=== PATIENT | female | born 1980 | race Caucasian/White ===

== ENCOUNTER 2018-12-12 08:41 | Emergency (ER) | payer MEDICAID ==
[~2018-12-12] VITALS: Ht 167.6 cm; Wt 59.3 kg
[2018-12-12 08:53] VITALS: BP 118/71; PULSE 109; RESP 20; Ht 167.6 cm; Wt 59.3 kg
[2018-12-12] MEDS ORDERED: ACETAMINOPHEN 325 MG TAB PO ONE (10:00)
[2018-12-12] MEDS ORDERED: FLUT16SP17 NASAL (11:05)
[2018-12-12] MEDS ORDERED: ACET325T45 PO (11:05)
[2018-12-12] MEDS ORDERED: CETI5TAB20 PO (11:05)
--- NOTE | 2018-12-12 11:32 | ERD ---
ER Documentation Chief Complaint Chief Complaint Complains of a cough x 3days HPI 38 year-old [female] coming in today with Chief Complaint: Cold symptoms History of Present Illness: female coming in today with complaint of cold symptoms for 3 days. Associated symptoms include cough, subjective fever with T-max, chills, body aches, rhinorrhea, nasal congestion. Denies abdominal pain and denies symptoms of genitourinary complaints and vaginal bleeding. Denies any other associated symptoms. At home for symptoms. Review of systems: All systems were reviewed and are negative except for what is indicated in the history of present illness. Past Medical History: [Negative for hypertension, diabetes or other medical problems] Social History: [Patient denies tobacco, alcohol, elicit drug use] Medications: [None] Allergies: [NKDA] Social Concerns: Denies ROS All systems reviewed and are negative except as per history of present illness. Medications Home Meds Active Scripts Cetirizine Hcl* (Cetirizine Hcl*) 5 Mg Tablet, 5 MG PO DAILY for runny nose/allergies/cough, #30 TAB Prov:ANGIE CHAVEZ NP 12/12/18 Acetaminophen* (Acetaminophen*) 325 Mg Tablet, 650 MG PO Q6 PRN for PAIN AND OR ELEVATED TEMP, #30 TAB Prov:ANGIE CHAVEZ NP 12/12/18 Fluticasone Propionate* (Fluticasone Propionate* Nasal) 50 Mcg/Burket - 16 Gm Burket.susp, 1 SPRAY NASAL DAILY for nasal congestion, #1 BOTTLE TO EACH NOSTRIL Prov:ANGIE CHAVEZ NP 12/12/18 Allergies Allergies: Coded Allergies: No Known Allergy (Unverified , 12/12/18) PMhx/Soc Medical and Surgical Hx: pt denies Medical Hx, pt denies Surgical Hx Hx Alcohol Use: No Hx Substance Use: No Hx Tobacco Use: No Smoking Status: Never smoker FmHx Family History: No diabetes, No coronary disease Physical Exam Vitals Vital Signs Date Temp Pulse Resp B/P (MAP) Pulse Ox O2 O2 Flow FiO2 Time Delivery Rate 12/12/18 98.5 109 20 118/71 97 08:53 (87) Physical Exam Const: No acute distress Head: Atraumatic Eyes: Normal Conjunctiva ENT: Normal External Ears, Nose and Mouth. Clear rhinorrhea. No erythema to tympanic membranes. Neck: Full range of motion. No meningismus. Resp: Clear to auscultation bilaterally Cardio: Regular rate and rhythm, no murmurs Abd: Soft, non tender, non distended. Normal bowel sounds. Skin: No petechiae or rashes Back: No midline or flank tenderness Ext: No cyanosis, or edema Neur: Awake and alert Psych: Normal Mood and Affect Results 24 hrs Current Medications Medications Dose Sig/Hannah Start Time Status Last (Trade) Ordered Route PRN Stop Time Admin Dose Reason Admin 650 mg ONCE ONCE 12/12/18 DC 12/12/18 Acetaminophen PO 10:00 12/12/18 10:03 (Tylenol 10:01 Tab) Procedures/MDM ED course includes a thorough examination and history. ED course includes patient; acetaminophen for pain/fever. ED course includes lab testing; influenza. Low suspicion for life-threatening medical emergency for patient for patient or unborn child. Otherwise healthy patient presenting with constellation of symptoms likely representing uncomplicated viral syndrome as characterized by history, physical exam findings [lab findings]. Negative influenza No respiratory distress, otherwise relatively well appearing and nontoxic. Patient educated on diagnoses, prescriptions [acetaminophen, cetirizine, fluticasone], follow-up care, return precautions. Strict return precautions given for worsening condition; questions answered discharge. Disposition for discharge with followup in 2-3 days with PCP/clinic. Departure Diagnosis: Primary Impression: Viral syndrome Condition: Stable Patient Instructions: Viral Syndrome (Adult) Referrals: [facility] Usted se green hecho un examen mdico de control que le indica que no est en judi condicin que requiera tratamiento urgente en el Departamento de Emergencia. Un estudio ms profundo y el tratamiento de coleman condicin pueden esperar sin ningn riesgo hasta que usted sea atendida/o en el consultorio de coleman mdico o judi clnica. Es responsabilidad suya arreglar judi jaskaran para el seguimiento del jamar. MANEJO DE CONDICIONES NO URGENTES EN EL FUTURO 1) Si usted tiene un mdico de atencin primaria: Usted debera llamar a coleman mdico de atencin primaria antes de venir al departamento de emergencia. Despus de las horas de consultorio, coleman doctor o coleman asociado/a est disponible por telfono. El mdico o enfermero de rafael en el servicio telefnico puede asesorarle por gisele medio para atender el problema, o jamar contrario se puede programar judi jaskaran. 2) Si usted no tiene un mdico de atencin primaria: Llame al mdico o clnica de referencia que aparece abajo ingrid las horas de consultorio para hacer judi jaskaran para que le vean. CLINICAS: [facility] [phone] [facility], [place] [phone] [address] [facility] [phone] [address] [facility]. [place] [id number] [phone] [facility]. [place] [address] [phone] [facility]. [phone] [facility]. [facility] () Usted se green hecho un examen mdico de control que le indica que no est en judi condicin que requiera tratamiento urgente en el Departamento de Emergencia. Un estudio ms profundo y el tratamiento de coleman condicin pueden esperar sin ningn riesgo hasta que usted sea atendida/o en el consultorio de coleman mdico o judi clnica. Es responsabilidad suya arreglar judi jaskaran para el seguimiento del jamar. MANEJO DE CONDICIONES NO URGENTES EN EL FUTURO 1) Si usted tiene un mdico de atencin primaria: Usted debera llamar a coleman mdico de atencin primaria antes de venir al departamento de emergencia. Despus de las horas de consultorio, coleman doctor o coleman asociado/a est disponible por telfono. El mdico o enfermero de rafael en el servicio telefnico puede asesorarle por gisele medio para atender el problema, o jamar contrario se puede programar judi jaskaran. 2) Si usted no tiene un mdico de atencin primaria: Llame al mdico o condado institucions de referencia que aparece abajo ingrid las horas de consultorio para hacer judi jaskaran para que le vean. SI USTED NO PUEDE PAGAR PARA MITCH UN MEDICO puede ir a: [facility] [address] [place] [address] [facility] [address] [place] [address] [facility] [address] [place] [address] [facility] [address] [place] [address] Additional Instructions: Call your primary care doctor TOMORROW for an appointment during the next 2-3 days.See the doctor sooner or return here if your condition worsens before your appointment time. Llame a coleman mdico de atencin primaria MAANA para judi jaskaran ingrid los prximos 2 o 3 partida. Consulte al mdico antes o vuelva aqu si coleman afeccin empeora antes de coleman jaskaran. ANGIE CHAVEZ NP Dec 12, 2018 11:32
== END 2018-12-12 11:00 | disposition home or self-care (01) ==
LOC: FTE 08:41
DX: B34.9 Viral infection, unspecified (principal)
CPT/HCPCS: 87400; Z7502; Z7610; 99283

== ENCOUNTER 2019-05-12 10:33 | Outpatient (CLI) | payer MEDICAID ==
[~2019-05-12] VITALS: Ht 152.4 cm; Wt 70.2 kg
[~2019-05-12 10:33] MED LIST: ACET325T45 PO; CALC600T24 PO; CETI5TAB20 PO; FERR134T PO; FLUT16SP17 NASAL; METF-849 PO; PNV11TAB PO
[2019-05-12 11:07] VITALS: BP 118/78; PULSE 90; Ht 152.4 cm; Wt 70.2 kg
--- NOTE | 2019-05-12 13:30 | TRIAGE ---
OB Triage Datetime Report Generated by CPN: 05/12/2019 13:30 Datetime: 05/12/2019 13:07 Stage of : OB Triage Datetime: 05/12/2019 13:00 Labor Evaluation Frequency: 5-7 Monitor Mode: External Duration (sec)2399: 50-60 Quality: Mild Pattern: Normal: <= 5 Contractions in 10 Minutes Resting Tone [place]: Relaxed Contraction Comments: STATES BARELY FEELS Heart Rate FHR Baseline Rate: 135 Monitor Mode: External US Variability: Moderate 6-25 bpm Accelerations: 10X10 Decelerations: None Category: Category I Pain Assessment Pain Scale: 2 Pain Presence: Intermittent Pain Type: Cramping Pain Location: Perineum Pain Goal: 3 Pain Relief Measures: Comfort Measures Datetime: 05/12/2019 12:01 Labor Evaluation Frequency: 8-10 Monitor Mode: External Duration (sec)2399: 40-60 Pattern: Normal: <= 5 Contractions in 10 Minutes Resting Tone [place]: Relaxed Heart Rate FHR Baseline Rate: 135 Monitor Mode: External US Variability: Moderate 6-25 bpm Accelerations: 10X10 Decelerations: None Category: Category I Pain Assessment Pain Scale: 0 Pain Presence: None/Denies Pain Type: N/A Pain Goal: 3 Pain Relief Measures: Comfort Measures Datetime: 05/12/2019 11:51 Stage of : OB Triage Datetime: 05/12/2019 11:04 Bedside Blood Glucose: 105 Datetime: 05/12/2019 11:00 Stage of : OB Triage Vaginal Exam Dilatation (cms): 1.5 Effacement (%): 50 Station: -2 Exam By: S ANSHUL Vaginal Bleeding: Scant Cervix, Consistency: Soft Cervix, Position: Posterior Presentation 'A': Cephalic Datetime: 05/12/2019 10:50 Stage of : OB Triage Assessment Type: Triage Maternal Assessment Level of Consciousness: Keenly Alert, Responsive DTR's/Clonus: DTRs 2+; No Clonus Headache: Denies Blurred Vision: No Respiratory Effort: Unlabored; Regular Rhythm; Equal Expansion Breath Sounds, Left: Clear and Equal Breath Sounds, Right: Clear and Equal Nausea/Vomiting: Denies RUQ Epigastric Pain: Denies Facial Edema: None Temperature Route: Axillary Fall Risk Assessment History of Falling: (0) No Secondary Diagnosis: (0) No Ambulatory Aid: (0) Bedrest/Nurse Assist IV Therapy: (0) No Gait: (0) Normal/Bedrest/Immobile Mental Status: (0) Oriented to Own Ability Fall Score: 0 Fall Risk Score Definition: No Risk: No action required Labor Evaluation Frequency: X1 Monitor Mode: External Duration (sec)2399: 50 Quality: Mild Pattern: Normal: <= 5 Contractions in 10 Minutes Resting Tone [place]: Relaxed Heart Rate FHR Baseline Rate: 135 Monitor Mode: External US Variability: Moderate 6-25 bpm Pain Assessment Pain Scale: 2 Pain Presence: Intermittent Pain Type: Cramping Pain Location: Perineum Pain Goal: 3 Pain Relief Measures: Comfort Measures Datetime: 05/12/2019 10:48 Time of Arrival: 05/12/2019 10:18 EGA: 36.2 Arrived By: Ambulatory Arrived From: Home Chief Complaint: C/O SPOTTING THIS AM, AIDM SEEN REGULARLY IN NST Movement: Present Contractions: Denies/Absent Rupture of Membranes: Denies Vaginal Bleeding: Scant Vaginal Discharge: Present Recent Sexual Intercouse: Denies Abdominal Trauma: Not Applicable Patient Complaints: Cramping Time Provider Notified: 05/12/2019 11:50 Provider Notified: ISABEL Initial Plan: MONITOR,BPP
--- NOTE | 2019-05-12 13:41 | PN ---
Triage Information Date/Time 05/12/1911/29/134 Reason for visit: Vag spotting / bleeding Weeks of Gestation 36w2d /Para Diabetes: gestational Diabetes management: diet controlled Hypertention: none Objective Vital Signs Date Temp Pulse Resp B/P (MAP) Pulse Ox O2 O2 Flow FiO2 Time Delivery Rate 05/12/19 98.1 90 118/78 11:07 (91) Heart Rate: 130's Heart Rate Comments CAT I Contractions: 6-10 Minutes Apart Exam VE 1-2/50/-2 pain level 2/10 uc's 8-10min apart Results/Medications Results 24 hrs Laboratory Tests Test 05/12/19 11:05 Bedside Glucose 105 Imaging Results BPP 05/18 DEJAN 13.7 Disposition: Discharge Assessment/Plan A IUP 36w2d A1DM P discharge home with routine labor instructions F/U with her OB IFTIKHAR BRAXTON MD May 12, 2019 13:41
== END 2019-05-12 13:21 | disposition home or self-care (01) ==
LOC: OBT 10:33 → L-D 10:33 → OBT 13:21
PROVIDERS: ATTEND Obstetrics & Gynecology
DX: O46.8X3 Other antepartum hemorrhage, third trimester (principal); Z3A.36 36 weeks gestation of pregnancy
CPT/HCPCS: 76818; 82962; Z7500; G0463

== ENCOUNTER 2019-05-23 03:30 | Inpatient (IN) | payer MEDICAID ==
[~2019-05-23] VITALS: Ht 152.4 cm; Wt 70.2 kg
[2019-05-23] VITALS (16 sets, daily range): BP systolic 125–167; BP diastolic 63–80; PULSE 70–94; RESP 14–19
[~2019-05-23 03:30] MED LIST changes: -ACET325T45 PO; -CETI5TAB20 PO; -FLUT16SP17 NASAL
--- NOTE | 2019-05-23 03:37 | NSTRPT ---
NST Information Datetime Report Generated by CPN: 05/23/2019 03:37 Datetime: 05/17/2019 08:32 NST Information EGA: 37.0 Time on Monitor: 05/17/2019 09:22 Time off Monitor: 05/17/2019 09:48 NST Duration (Min): 26 Reason for NST Other: [id number] Test and Monitor Explained: Monitor Explained; Test Explained; Verbalized Understanding Pulse: 81 Resp: 18 SBP: 118 DBP: 69 Test Evaluation NST Interventions: None Patient States Movement: Present Contraction Frequency: X3(mild) FHR Baseline : 130 Variability: Moderate 6-25bpm Accelerations: 15X15 Decelerations: None FHR Category: Category I NST Results: Reactive Comments: pt to u/s. DEJAN 15.6CM. cephalic. BPP 8/8. FBS:71 Patient states she started taking Metformin on 05/13/19. Electronically Signed By E-Signature: with User ID: [id number] Datetime: 05/10/2019 11:38 NST Information EGA: 36.0 Datetime: 05/10/2019 10:15 NST Duration (Min): 36
[2019-05-23] MEDS ORDERED: LACTATED RINGER'S 1,000 ML IV PRN (04:34)
[2019-05-23] MEDS ORDERED: LACTATED RINGER'S 1,000 ML IV SCH (04:34)
[2019-05-23] MEDS ORDERED: CARBOPROST 250 MCG INJ IM PRN ×3 (05:00→10:30)
[2019-05-23] MEDS ORDERED: BUTORPHANOL 2 MG INJ IV PRN ×2 (05:00)
[2019-05-23] MEDS ORDERED: MISOPROSTOL 200 MCG TAB PR PRN ×3 (05:00→10:30)
[2019-05-23] MEDS ORDERED: MINERAL OIL LIGHT 10 ML VIAL TOP PRN (05:00)
[2019-05-23] MEDS ORDERED: LIDOCAINE 1% (MPF) 30 ML INJ INJ PRN (05:00)
[2019-05-23] MEDS ORDERED: IBUPROFEN 600 MG TAB PO PRN (05:00)
[2019-05-23] MEDS ORDERED: OXYTOCIN 30 UNITS/LR 500 ML IV PRN ×3 (05:00→10:30)
[2019-05-23] MEDS ORDERED: METHYLERGONOVINE 0.2 MG INJ IM PRN ×3 (05:00→10:30)
[2019-05-23] MEDS ORDERED: OXYTOCIN 30 UNITS/LR 500 ML IV SCH ×2 (05:00)
[2019-05-23] MEDS ORDERED: MAGNESIUM SULFATE 20 GM/500 ML 500 ML IV SCH (06:53)
[2019-05-23] MEDS ORDERED: MAGNESIUM SULFATE 4 GM/100 ML 100 ML IV SCH (07:00)
[2019-05-23] MEDS ORDERED: NACL 0.9% 3 ML SYG IV SCH (07:00)
[2019-05-23] MEDS ORDERED: CA GLUCONATE (GM) 10% 10ML INJ IV PRN ×2 (07:00→11:00)
--- NOTE | 2019-05-23 07:14 | HP ---
Date/Time of Note Date/Time of Note DATE: 05/23/19 TIME: 07:09 OB - History Hx of Present Free Text/Dictation 38 years old female 3 para 2 admitted in labor at 37.6 weeks . History of uncontrolled diabetes gestational. Previous 2 vaginal deliveries Last Menstrual Period: Jun 05, 2018 Estimated Due Date: Jun 05, 2019 : 3 Care: Good Care Ultrasounds: Normal mid trimester US Obstetrical Complications: Gestational Diabetes Past Family/Social History * Past Medical, Surgical, Family and Obstetric Histories reviewed from chart. Blood Type: O+ Rubella: not immune RPR/VDRL: Negative GBS Status: Negative (Is) HBsAG: Negative OB Admission Exam Vital Signs Vital Signs Vital Signs Date Temp Pulse Resp B/P (MAP) Pulse Ox O2 O2 Flow FiO2 Time Delivery Rate 05/23/19 98.0 81 15 138/80 Room Air 03:30 (99) Last 72 hours Lab Results CBC & BMP 05/23/19 05:25 Liver Function Test 05/23/19 05:25 Alanine Aminotransferase (ALT/SGPT) 65 Albumin 3.4 Alkaline Phosphatase 213 H Aspartate Amino Transf (AST/SGOT) 47 H Direct Bilirubin 0.00 Total Protein 6.7 GÓMEZ HALL MD May 23, 2019 07:14
--- NOTE | 2019-05-23 07:29 | LDN ---
Date/Time of Note Date/Time of Note DATE: 05/23/19 TIME: 07:26 Delivery Summary 37.6 weeks Active labor Gestational diabetes uncontrolled Developing preeclampsia is admitted for delivery of treatment Weeks of Gestation 37.6 Placenta Delivered: Spontaneously Meconium: none Episiotomy: No Laceration repair: None Anesthesia type: None Estimated blood loss: 200 Sponge & Needle done & correct: Yes All needle counts correct: Yes Any foreign bodies felt in the: No Infant Delivery Information Sex Infant Sex: female Apgars 1 Minute: 9 5 Minute: 9 Suctioning Nose & mouth suctioned at monica: Yes Delee suction performed: No Umbilical Cord Umbilical cord with: 3 Vessels Cord presentations: no nuchal cord Cord Blood was obtained: Yes Mother & Baby Disposition Disposition Mom & Baby to Maternity; Good: Yes GÓMEZ HALL MD May 23, 2019 07:29
[2019-05-23] MEDS ORDERED: metFORMIN 500 MG TAB PO SCH ×2 (07:35→17:05)
--- NOTE | 2019-05-23 08:04 | TRIAGE ---
OB Triage Datetime Report Generated by CPN: 05/23/2019 08:03 Datetime: 05/23/2019 06:55 Stage of : Recovery Temperature Route: Axillary Pain Assessment Pain Scale: 3 Pain Presence: Intermittent Pain Type: Cramping Pain Location: Abdomen Pain Assessment Comments: Datetime: 05/23/2019 06:11 Monitor Mode: External Quality: Strong Pattern: Normal: <= 5 Contractions in 10 Minutes Resting Tone [place]: Relaxed Heart Rate FHR Baseline Rate: 135 Monitor Mode: External US FHR Baseline Changes: No Baseline Change Variability: Moderate 6-25 bpm Accelerations: 15X15 Decelerations: Early; Variable Category: Category II Pain Assessment Pain Scale: 10 Pain Presence: Intermittent Pain Type: Contraction Pain Location: Abdomen Vaginal Exam Dilatation (cms): 8.5 Effacement (%): 100 Station: -1 Exam By: Manuel Nichols Membrane Status: Bulging Vaginal Bleeding: Normal Show Cervix, Consistency: Soft Cervix, Position: Anterior Presentation 'A': Cephalic Datetime: 05/23/2019 06:03 Assessment Type: Admission Assessment Vaginal Bleeding: None Maternal Assessment Level of Consciousness: Keenly Alert, Responsive Headache: Denies Blurred Vision: No Respiratory Effort: Unlabored; Regular Rhythm; Equal Expansion Breath Sounds, Left: Clear and Equal Breath Sounds, Right: Clear and Equal Nausea/Vomiting: Denies RUQ Epigastric Pain: Denies Lower Extremities Edema: Bilateral Lower Extremities Degree: 1+ Upper Extremities Edema: None Facial Edema: None Fall Risk Assessment History of Falling: (0) No Secondary Diagnosis: (0) No Ambulatory Aid: (0) Bedrest/Nurse Assist IV Therapy: (20) Yes Gait: (0) Normal/Bedrest/Immobile Mental Status: (0) Oriented to Own Ability Fall Score: 20 Fall Risk Score Definition: No Risk: No action required Heart Rate FHR Baseline Rate: 135 Variability: Moderate 6-25 bpm Accelerations: 15X15 Decelerations: Variable Category: Category II Pain Assessment Pain Scale: 8 Pain Presence: Intermittent Pain Type: Contraction Pain Location: Right Groin Pain Goal: 3 Pain Assessment Comments: Datetime: 05/23/2019 05:37 Vaginal Exam Dilatation (cms): 7.5 Effacement (%): 90 Station: -2 Exam By: Bartolo Durand RN Vaginal Bleeding: None Cervix, Consistency: Soft Cervix, Position: Midposition Presentation 'A': Cephalic Datetime: 05/23/2019 04:17 Time of Arrival: 05/23/2019 03:20 EGA: 37.6 Arrived By: Wheelchair Arrived From: Home Chief Complaint: c.o ucs and discharge Movement: Present Contractions: Regular Time Contractions Began: 05/22/2019 22:00 Contractions: q5 Rupture of Membranes: Denies Vaginal Bleeding: Scant Vaginal Discharge: Present Recent Sexual Intercouse: Denies Abdominal Trauma: Not Applicable Patient Complaints: Contractions Time Provider Notified: 05/23/2019 04:20 Provider Notified: Dr Pham Initial Plan: EFM,SVE Datetime: 05/23/2019 04:15 Vaginal Exam Dilatation (cms): 5.0 Membrane Status: Bulging Membrane Status: Intact Datetime: 05/23/2019 04:13 Labor Evaluation Frequency: 2-5 Monitor Mode: External Duration (sec)4339: 40-75 Quality: Moderate Pattern: Normal: <= 5 Contractions in 10 Minutes Resting Tone [place]: Relaxed Heart Rate FHR Baseline Rate: 130 Monitor Mode: External US FHR Baseline Changes: No Baseline Change Variability: Moderate 6-25 bpm Accelerations: 15X15 Decelerations: None Category: Category I Pain Assessment Pain Scale: 6 Pain Presence: Intermittent Pain Type: Contraction Pain Location: Abdomen Vaginal Exam Dilatation (cms): 5.0 Effacement (%): 80 Station: -2 Exam By: Manuel Simone Membrane Status: Bulging Vaginal Bleeding: Scant Cervix, Consistency: Soft Cervix, Position: Posterior Presentation 'A': Cephalic Datetime: 05/12/2019 10:50 Fall Score: 0 Fall Risk Score Definition: No Risk: No action required Datetime: 05/12/2019 10:48 EGA: 36.2 Datetime: 05/10/2019 11:38 Membranes Rupture Method: Artificial Amniotic Fluid Color: Clear Amniotic Fluid Amount: Large Amniotic Fluid Odor: Normal
[2019-05-23] MEDS ORDERED: LABETALOL 100 MG TAB PO SCH (09:00)
[2019-05-23] MEDS: LACTATED RINGER'S 1,000 ML IV* SCH ×3 (10:17→23:42)
[2019-05-23] MEDS ORDERED: LACTATED RINGER'S 1,000 ML IV* SCH (10:17)
[2019-05-23] MEDS ORDERED: HYDROCODONE/APAP (5/325) TAB PO PRN ×4 (10:30)
[2019-05-23] MEDS ORDERED: MAGNESIUM HYDROXIDE 30ML CUP PO PRN ×2 (10:30)
[2019-05-23] MEDS ORDERED: ONDANSETRON 4 MG INJ IV PRN ×2 (10:30)
[2019-05-23] MEDS ORDERED: LANOLIN HPA 1 PKT TOP PRN ×2 (10:30)
[2019-05-23] MEDS ORDERED: DIPHENHYDRAMINE 25 MG CAP PO PRN ×2 (10:30)
[2019-05-23] MEDS ORDERED: DIPHENHYDRAMINE 50 MG INJ IV PRN ×2 (10:30)
[2019-05-23] MEDS ORDERED: SENNA/DOCUSATE NA (8.6MG/50MG) TAB PO PRN ×2 (10:30)
[2019-05-23] MEDS ORDERED: BENZOCAINE 20% 56 ML SPRAY TOP PRN ×2 (10:30)
[2019-05-23] MEDS ORDERED: ONDANSETRON 4 MG TAB PO PRN ×2 (10:30)
[2019-05-23] MEDS ORDERED: ACETAMINOPHEN 325 MG TAB PO PRN ×4 (10:30)
[2019-05-23] MEDS ORDERED: DIBUCAINE 1% 30 GM OINT TOP PRN (10:30)
[2019-05-23] MEDS: IBUPROFEN 800 MG TAB PO SCH ×3 (11:38→23:42)
[2019-05-23] MEDS: OXYTOCIN 30 UNITS/LR 500 ML IV SCH ×2 (11:39→17:58)
[2019-05-23] MEDS ORDERED: IBUPROFEN 800 MG TAB PO SCH (12:00)
[2019-05-23] MEDS: metFORMIN (XR) 500 MG TAB PO SCH (17:57)
[2019-05-23] MEDS: LABETALOL 100 MG TAB PO SCH (20:39)
[2019-05-24] VITALS (16 sets, daily range): BP systolic 117–143; BP diastolic 64–88; PULSE 73–88; RESP 17–19
[2019-05-24] MEDS: MAGNESIUM SULFATE 20 GM/500 ML 500 ML IV SCH ×2 (04:48→07:00)
[2019-05-24] MEDS: LACTATED RINGER'S 1,000 ML IV* SCH ×2 (04:52→09:58)
[2019-05-24] MEDS: IBUPROFEN 800 MG TAB PO SCH ×3 (05:40→17:42)
[2019-05-24] MEDS: ACCU-CHEK XX SCH ×4 (07:30→13:50)
[2019-05-24] MEDS: LABETALOL 100 MG TAB PO SCH ×2 (08:31→21:45)
[2019-05-24] MEDS: metFORMIN (XR) 500 MG TAB PO SCH ×2 (08:32→17:42)
--- NOTE | 2019-05-24 21:21 | QN ---
Documentation Comment PPD#1 S/P No complaints VSS VS - Last 72 Hours, by Label Date Temp Pulse Resp B/P (MAP) Pulse Ox O2 O2 Flow FiO2 Time Delivery Rate 05/24/19 98.1 74 18 133/77 Room Air 15:00 (95) 05/24/19 77 17 127/75 Room Air 14:00 (92) 05/24/19 86 17 137/88 Room Air 13:00 (104) 05/24/19 78 18 121/75 Room Air 12:00 (90) 05/24/19 80 18 118/71 Room Air 11:00 (87) 05/24/19 88 18 119/64 Room Air 10:00 (82) 05/24/19 87 18 131/75 Room Air 09:00 (93) 05/24/19 97.9 79 18 117/64 Room Air 08:00 (81) 05/24/19 73 17 133/65 Room Air 07:00 (87) 05/24/19 77 18 131/71 Room Air 05:30 (91) 05/24/19 97.8 76 18 132/74 Room Air 04:30 (93) 05/24/19 18 127/74 Room Air 03:30 (91) 05/24/19 18 137/75 Room Air 02:30 (95) 05/24/19 18 123/68 01:30 (86) 05/24/19 98.0 76 19 132/74 Room Air 00:30 (93) 05/23/19 18 125/64 Room Air 23:30 (84) 05/23/19 18 158/69 Room Air 22:30 (98) 05/23/19 19 143/66 Room Air 21:30 (91) 05/23/19 18 167/77 Room Air 20:35 (107) 05/23/19 98.2 70 18 133/71 Room Air 19:30 (91) 05/23/19 82 14 129/64 19:00 (85) 05/23/19 84 14 151/69 Room Air 18:01 (96) 05/23/19 71 16 143/69 Room Air 16:50 (93) 05/23/19 98.5 73 14 129/63 Room Air 15:50 (85) 05/23/19 90 14 146/70 Room Air 14:50 (95) 05/23/19 83 14 144/70 Room Air 13:39 (94) 05/23/19 89 15 134/69 Room Air 12:39 (90) 05/23/19 90 16 139/73 Room Air 11:39 (95) 05/23/19 94 17 134/75 Room Air 10:30 (94) 05/23/19 98.8 75 14 145/76 Room Air 09:30 (99) 05/23/19 98.0 81 15 138/80 Room Air 03:30 (99) Hematology - 72 Hrs Test 05/23/19 05:25 05/23/19 12:29 05/24/19 05:59 Hematocrit 42.4 % (37.0-47.0) 36.8 % (37.0-47.0) 39.0 % (37.0-47.0) L Hemoglobin 13.7 12.4 12.9 g/dl (12.0-16.0) g/dl (12.0-16.0) g/dl (12.0-16.0) Mean Corpuscular 30.4 pg (29.0-33.0) 31.2 30.9 Hemoglobin pg (29.0-33.0) pg (29.0-33.0) Mean Corpuscular 32.3 33.7 33.1 Hemoglobin Concent g/dl (32.0-37.0) g/dl (32.0-37.0) g/dl (32.0-37.0) Mean Corpuscular 94.0 92.7 93.3 Volume fl (82.0-101.0) fl (82.0-101.0) fl (82.0-101.0) Mean Platelet 13.0 fl (7.4-10.4) 13.0 fl (7.4-10.4) 12.5 fl (7.4-10.4) Volume H H H Platelet Count 173 142 160 10^3/UL (140-415) 10^3/UL (140-415) 10^3/UL (140-415) Red Blood Count 4.51 3.97 4.18 10^6/ul (4.20-5.40) 10^6/ul (4.20-5.40 10^6/ul (4.20-5.40 ) L ) L Red Cell 13.2 % (11.5-14.5) 13.2 % (11.5-14.5) 13.3 % (11.5-14.5) Distribution Width White Blood Count 7.7 11.3 7.0 10^3/ul (4.8-10.8) 10^3/ul (4.8-10.8) 10^3/ul (4.8-10.8) #H # Chemistry Test 05/23/19 05:25 05/23/19 10:26 05/23/19 12:29 05/23/19 14:30 Sodium Level 136 mmol/L (135-144 ) Potassium 4.1 Level mmol/L (3.5-5.1 ) Chloride Level 108 mmol/L (97-110) Carbon Dioxide 20 Level mmol/L (21-31) L Anion Gap 8 (5-13) Blood Urea 13 mg/dl (7-20) Nitrogen Creatinine 0.47 mg/dl (0.44-1.0 0) Est Glomerular > 60 Filtrat mL/min (>60) Rate mL/min Glucose Level 79 mg/dl (70-220) Uric Acid 5.4 mg/dl (3.1-7.9) Calcium Level 9.8 mg/dl (8.4-10.2 ) Phosphorus 4.3 Level mg/dl (2.5-4.9) Total 0.4 Bilirubin mg/dl (0.2-1.3) Direct 0.00 Bilirubin mg/dl (0.00-0.2 0) Indirect 0.4 Bilirubin mg/dl (0-1.1) Aspartate Amino 47 IU/L (15-46) Transf (AST/SGO H T) Alanine 65 IU/L (13-69) Aminotransferas e (ALT/SGPT) Alkaline 213 Phosphatase IU/L (42-121) H Lactate 448 Dehydrogenase IU/L (313-618) Total Protein 6.7 g/dl (6.1-8.1) Albumin 3.4 g/dl (3.3-4.9) Globulin 3.30 g/dl (1.3-3.2) H Albumin/Globuli 1.03 n Ratio Bedside 80 116 Glucose mg/dL (70-220) mg/dL (70-220) Magnesium 3.2 Level mg/dl (1.7-2.5 ) H Test 05/23/19 17:47 05/23/19 18:04 05/23/19 21:26 05/24/19 00:55 Bedside 102 121 Glucose mg/dL (70-220) mg/dL (70-220) Magnesium 3.5 3.7 Level mg/dl (1.7-2.5 mg/dl (1.7-2.5 ) H ) H Test 05/24/19 05:59 05/24/19 08:27 05/24/19 10:58 05/24/19 12:15 Uric Acid 4.9 mg/dl (3.1-7.9) Magnesium 4.1 3.9 Level mg/dl (1.7-2.5) mg/dl (1.7-2.5 H ) H Total 0.2 Bilirubin mg/dl (0.2-1.3) Direct 0.00 Bilirubin mg/dl (0.00-0.2 0) Indirect 0.2 Bilirubin mg/dl (0-1.1) Aspartate Amino 47 IU/L (15-46) Transf (AST/SGO H T) Alanine 44 IU/L (13-69) Aminotransferas e (ALT/SGPT) Alkaline 170 Phosphatase IU/L (42-121) H Total Protein 5.6 g/dl (6.1-8.1) #L Albumin 2.7 g/dl (3.3-4.9) L Bedside 69 88 Glucose mg/dL (70-220) mg/dL (70-220) L Test 05/24/19 14:37 Bedside 96 Glucose mg/dL (70-220) Abd soft, fundus firm perineum intact ext NT A/P D/C Magnesium Sulfate Monitor BPs closely patient is stable and doing well Continue with routine care KRISTI PENNINGTON MD May 24, 2019 21:21
[2019-05-25] VITALS: BP 118/77; RESP 18
[2019-05-25] MEDS: IBUPROFEN 800 MG TAB PO SCH ×3 (00:52→12:29)
[2019-05-25 04:00] VITALS: BP 116/69; PULSE 72; RESP 18
[2019-05-25 08:30] VITALS: BP 127/68; PULSE 77; RESP 17
[2019-05-25] MEDS ORDERED: MEASLES,MUMPS,RUBELLA VACCINE INJ SC* ONE (09:00)
[2019-05-25] MEDS ORDERED: DIPHTH/TET/ACEL PERTUSS (ADULT) 0.5 ML VIAL IM* ONE (09:00)
[2019-05-25] MEDS ORDERED: VARICELLA VACCINE LIVE/PF 1,350 UNIT/0.5 ML ML SC* ONE (09:00)
[2019-05-25] MEDS: metFORMIN (XR) 500 MG TAB PO SCH (09:08)
[2019-05-25] MEDS: LABETALOL 100 MG TAB PO SCH (09:09)
--- NOTE | 2019-05-25 16:15 | QN ---
Documentation Comment Patient denies any headache, blurred vision, epigastric pain or right upper quadrant pain. Vaginal bleeding in the month of menses. Pumping her breast. Reports decreased vaginal bleeding. Physical examination: General appears alert and oriented x4 does not appear to be in any acute distress Abdomen: Soft, fundus firm palpable below the umbilicus and nontender Breast: No evidence of engorgement mastitis Extremities: No calf tenderness, no click no edema no cord palpable Laboratory Tests Test 05/24/19 22:15 05/25/19 07:42 05/25/19 10:54 Bedside Glucose 96 75 95 VS - Last 72 Hours, by Label Date Temp Pulse Resp B/P (MAP) Pulse Ox O2 O2 Flow FiO2 Time Delivery Rate 05/25/19 98.6 77 17 127/68 Room Air 08:30 (87) 05/25/19 98.0 72 18 116/69 Room Air 04:00 (85) 05/25/19 18 118/77 Room Air 00:00 (91) 05/24/19 98.4 75 18 143/80 Room Air 21:00 (101) 05/24/19 98.1 74 18 133/77 Room Air 15:00 (95) 05/24/19 77 17 127/75 Room Air 14:00 (92) 05/24/19 86 17 137/88 Room Air 13:00 (104) 05/24/19 78 18 121/75 Room Air 12:00 (90) 05/24/19 80 18 118/71 Room Air 11:00 (87) 05/24/19 88 18 119/64 Room Air 10:00 (82) 05/24/19 87 18 131/75 Room Air 09:00 (93) 05/24/19 97.9 79 18 117/64 Room Air 08:00 (81) 05/24/19 73 17 133/65 Room Air 07:00 (87) 05/24/19 77 18 131/71 Room Air 05:30 (91) 05/24/19 97.8 76 18 132/74 Room Air 04:30 (93) 05/24/19 18 127/74 Room Air 03:30 (91) 05/24/19 18 137/75 Room Air 02:30 (95) 05/24/19 18 123/68 01:30 (86) 05/24/19 98.0 76 19 132/74 Room Air 00:30 (93) 05/23/19 18 125/64 Room Air 23:30 (84) 05/23/19 18 158/69 Room Air 22:30 (98) 05/23/19 19 143/66 Room Air 21:30 (91) 05/23/19 18 167/77 Room Air 20:35 (107) 05/23/19 98.2 70 18 133/71 Room Air 19:30 (91) 05/23/19 82 14 129/64 19:00 (85) 05/23/19 84 14 151/69 Room Air 18:01 (96) 05/23/19 71 16 143/69 Room Air 16:50 (93) 05/23/19 98.5 73 14 129/63 Room Air 15:50 (85) 05/23/19 90 14 146/70 Room Air 14:50 (95) 05/23/19 83 14 144/70 Room Air 13:39 (94) 05/23/19 89 15 134/69 Room Air 12:39 (90) 05/23/19 90 16 139/73 Room Air 11:39 (95) 05/23/19 94 17 134/75 Room Air 10:30 (94) 05/23/19 98.8 75 14 145/76 Room Air 09:30 (99) 05/23/19 98.0 81 15 138/80 Room Air 03:30 (99) Status post induction for PIH Was on magnesium for 24 hours postdelivery now off of magnesium Blood pressures well controlled with labetalol 100 mg p.o. twice daily day #2, patient is currently asymptomatic. Advised to continue taking labetalol 200 mg p.o. twice daily and follow-up in 3 days with primary OB office for monitoring and recheck the blood pressure with a strict preeclampsia precaution Patient verbalized understanding. She agreed to comply with instructions and a ll questions were answered to patient's best satisfaction. MICHAELA DELACRUZ MD May 25, 2019 16:15
--- NOTE | 2019-05-25 16:22 | PD.PPDC ---
[employer] Discharge Instruction Provider Information Physician Information Michaela Delacruz MD Condition [id number] Patient Condition: [id number] Good Diet [id number] Diet: [id number] Resume Regular Diet Activity/Restrictions [id number] Restrictions: [id number] No Exercising No Lifting No Driving Minimize Stair-climbing No Sexual Activity No [place] No Tampons, douche Follow-up Follow-up with Physician: 3, Day/Days Provider Information: follow up in 3 days with OB clinic.for follow up of the blood pressure as well 1 weeks and 6 weeks with OB office. Return to clinic for [id number] [employer]OP[employer] PRACTICE MANAGER Instructions: [id number] Fever greater than 101 Chills Worsening abdominal pain Excessive Vaginal Bleeding More than 2 pads per hour Unable to tolerate diet [id number] OB Instructions: [id number] Breast Tenderness Depression Blurried Vision Headache Comment: RT ED if she has headache, blurred vision, Epigastric pain, RUQ pain. fever, Chills, abnormal vaginal bleeding, MICHAELA DELACRUZ MD May 25, 2019 16:22
--- NOTE | 2019-05-25 16:26 | DS ---
Date/Time of Note Date/Time of Note DATE: 05/25/19 TIME: 16:25 Discharge Summary Admission/Discharge Info Admit Date/Time May 23, 2019 at 04:15 Discharge Date/Time 03/25/2019 Discharge Diagnosis Severe preclampsia, Delivered GDM, A2 Patient Condition: Good Consults N/A Procedures Management of labor Magnesium for seizure prophylaxis Hx of Present Illness 38 years old female 3 para 2 admitted in labor at 37.6 weeks . Had a history of uncontrolled gestational diabetes she also. Noted to have elevated blood pressure consistent with preeclampsia. She was a started on magnesium for seizure prophylaxis. Had . Intrapartum course was not complicated. she continued receiving magnesium for 24 hours. Her blood pressure was well controlled with labetalol 100 mg p.o. twice daily and she was on metformin 500 mg p.o. daily. On day #2 patient was noted to be stable enough for discharge. He was advised to present to primary OB office in 3 days for monitoring of blood pressure with a nurse visit as well as continue taking the beta 100 mg p.o. twice daily and metformin 500 mg p.o. daily. Strict preeclampsia precaution and signs and symptoms again reviewed and discussed with patient in detail. Precaution was given to return to emergency room she has any of those symptoms. Patient verbalized understanding importance of follow-up and agreed to comply with instructions. Hospital Course Uncomplicated Home Meds Reported Medications Metformin* (Glucophage*) 500 Mg Tab, 500 MG PO AC DINNER, #90 TAB 05/23/19 Metformin* (Glucophage*) 500 Mg Tab, 500 MG PO WITH BREAKFAST, #30 TAB 05/23/19 Ferrous Sulfate (Iron) 134 Mg Tablet, 134 MG PO DAILY, TAB 05/23/19 Calcium Carbonate* (Calcium Carbonate*) 600 MG Ca Tab, 600 MG PO DAILY, TAB 05/23/19 [id number] ( 19) 1 Each Tablet, 1 TAB PO DAILY, TAB 05/12/19 Follow-up Plan In 3 days with primary OB office and in 1 week has been a 6 weeks Primary Care Provider Care Physician No Primary Time spent on discharge: > 30 minutes Pending Labs Laboratory Tests Test 05/24/19 22:15 05/25/19 07:42 05/25/19 10:54 Bedside Glucose 96 mg/dL (70-220) 75 mg/dL (70-220) 95 mg/dL (70-220) MICHAELA DELACRUZ MD May 25, 2019 16:26
[2019-05-25 17:01] VITALS: BP 116/70; PULSE 78; RESP 18
--- NOTE | 2019-05-26 18:37 | DELSUM ---
Delivery Summary A-C Datetime Report Generated by CPN: 05/26/2019 18:37 DELIVERY PERSONNEL Civil Cadd Technician: Simone, Roseanne MATERNAL INFORMATION Delivery Anesthesia: None Medications in Delivery: pitocin, stadol Delivery QBL (ml): 200 Placenta Cultured: No Maternal Complications: Abnormal Cord Length Other Maternal Complications: short cord LABOR SUMMARY EDC: 06/07/2019 00:00 No. Babies in Womb: 1 Attempted: No Labor Anesthesia: None LABOR INFORMATION Onset of Labor: 05/22/2019 22:00 Complete Dilatation: 05/25/2019 06:16 Group B Beta Strep: Negative Antibiotics # of Doses: 0 Steroids Given: None Reason Steroids Not Administered: Not Applicable MEMBRANES Membranes Rupture Method: Artificial Rupture of Membranes: 05/25/2019 06:25 Length of Rupture (hr): -47.87 Amniotic Fluid Color: Clear Amniotic Fluid Amount: Large Amniotic Fluid Odor: Normal STAGES OF LABOR Stage 1 hr: 56 Stage 1 min: 16 Stage 2 hr: -47 Stage 2 min: -43 Stage 3 hr: 0 Stage 3 min: 2 Total Time in Labor hr: 8 Total Time in Labor min: 35 VAGINAL DELIVERY Episiotomy: None Laceration Extension: N/A Laceration Type: None Laceration Repair: Not Applicable Initial Vag Sponge Count: 10 Final Vag Sponge Count: 10 Sponge Count Correct: Yes Sharps Count Correct: Yes BABY A INFORMATION Delivery Date/Time: 05/23/2019 06:33 Method of Delivery: Vaginal Born in Route : No : N/A Forceps: N/A Vacuum Extraction: N/A Shoulder Dystocia : N/A SHOULDER DYSTOCIA BABY A Infant Delivery Date/Time: 05/23/2019 06:33 PRESENTATION/POSITION BABY A Presentation: Cephalic PLACENTA INFORMATION BABY A Placenta Delivery Time : 05/23/2019 06:35 Placenta Method of Delivery: Expressed Placenta Status: Delivered SCORES BABY A Heart Rate 1 min: >100 bpm Resp Effort 1 min: Good Cry Reflex Irritability 1 min: Cough/Sneeze/Pulls Away Muscle Tone 1 min: Active Motion Color 1 min: Blue/Pale Resuscitation Effort 1 min: Tactile Stimulation SCORE 1 MIN: 8 Heart Rate 5 min: >100 bpm Resp Effort 5 min: Good Cry Reflex Irritability 5 min: Cough/Sneeze/Pulls Away Muscle Tone 5 min: Active Motion Color 5 min: Body Golinda, Extremit Blue Resuscitation Effort 5 min: Tactile Stimulation SCORE 5 MIN: 9 INFORMATION BABY A Gestational Age at Delivery: 38.0 Gestational Status: Early Term- 37- 38.6 Weeks Infant Outcome : Liveborn, with signs of life Condition : Stable Sex: Female WEIGHT/LENGTH BABY A Infant Birthweight (gm): 3515 Infant Weight (lb): 7 Infant Weight (oz): 12 Length (in): 19.00 Length (cm): 48.26 CORD INFORMATION BABY A No. Cord Vessels: 3 Nuchal Cord : N/A Cord Blood Taken: Yes Infant Suction: Mouth; Nose ASSESSMENT BABY A Complications: None Respirations: Appears Normal Customer Specialist/ALS Called : No Transferred To: Remains with Mother
== END 2019-05-25 18:00 | disposition home or self-care (01) | DRG 807 ==
LOC: OBT 03:30 → L-D 03:30 → OBT 04:15 → L-D 04:15 → PP1 09:32
PROVIDERS: ADMIT Obstetrics & Gynecology; ATTEND Obstetrics & Gynecology
PROC: 10E0XZZ Delivery of Products of Conception, External Approach (ICD-10-PCS; principal; 2019-05-23)
DX: O14.14 Severe pre-eclampsia complicating childbirth (principal); Z37.0 Single live birth; O24.425 Gestational diabetes mellitus in childbirth, controlled by oral hypoglycemic drugs; Z3A.37 37 weeks gestation of pregnancy
CPT/HCPCS: 80053; 80076; 81001; 82962; 83615; 83735; 84100; 84560; 85025; 85384; 85610; 85730; 86592; 86850; 86900; 86901; 87340; 88307; 90716; 99464; G0463; J0595; J2590; J3475; J7120